=== PATIENT | male | born 1960 | race Caucasian/White ===

== ENCOUNTER 2021-09-26 14:15 | Outpatient (CLI) | payer OTHER, SELFPAY ==
[2021-09-26 14:28] LABS: Basophils Absolute Auto 0.1 K/mm3 (0.0-0.1); Basophils Percent Auto 0.6 % (0.2-1.2); Eosinophils Absolute Auto 0.4 K/mm3 (0-0.3); Eosinophils Percent Auto 3.2 % (0-4.4); Hematocrit 44.2 % (42.0-52.0); Hemoglobin 14.2 g/dL (14.0-18.0); Immature Granulocyte Absolute 0.25 K/mm3 (0.00-0.031); Immature Granulocyte Percent A 2.1 % (0-0.5); Lymphocytes Absolute Auto 1.85 K/mm3 (0.9-3.2); Lymphocytes Percent Auto 15.3 % (18.3-44.2); Mean Corpuscular HGB Conc 32.1 g/dl (32-36); Mean Corpuscular Hemoglobin 29.9 pg (26-34); Mean Corpuscular Volume 93.1 fl (80-100); Mean Platelet Volume 10.6 fl (7.4-10.4); Monocytes Absolute Auto 1.2 K/mm3 (0.1-0.6); Monocytes Percent Auto 9.7 % (2.6-8.5); Neutrophils Absolute Auto 8.4 K/mm3 (1.3-6.7); Neutrophils Percent Auto 69.1 % (45.5-73.1); Platelet Count Result 253 k/mm3 (150-375); Red Blood Count 4.75 M/mm3 (4.6-6.20); Red Cell Distribution Width 13.4 % (11.5-14.5); White Blood Count 12.1 K/mm3 (4.5-10.0)
[2021-09-26 14:31] LABS: Blood Urea Nitrogen 31 mg/dL (8-26); Carbon Dioxide 26 mmol/L (22-30); Chloride 105 mmol/L (98-109); Estimated Glomerular Filt Rate 56; Glucose 113 mg/dL (70-105); Potassium 3.4 mmol/L (3.5-4.9); Sodium 142 mmol/L (138-146)
[2021-09-26 15:38] LABS: Alanine Aminotransferase 26 U/L (4-50); Alkaline Phosphatase 48 U/L (38-126); Anion Gap 9 mmol/L (8-16); Aspartate Amino Transferase 22 U/L (17-59); Bilirubin,Total 0.5 mg/dL (0.2-1.3); Blood Urea Nitrogen 31 mg/dL (9-20); Calcium 8.8 mg/dL (8.4-10.2); Carbon Dioxide 23 mmol/L (22-30); Chloride 107 mmol/L (98-107); Estimated Glomerular Filt Rate > 60; Glucose 115 mg/dL (65-110); Potassium 3.4 mmol/L (3.4-5.0); Sodium 139 mmol/L (137-145)
== END 2021-09-26 14:16 | disposition home or self-care (01) ==
LOC: ANHLAB 14:17
PROVIDERS: Visit Provider Internal Medicine Hematology & Oncology
DX: D49.6 Neoplasm of unspecified behavior of brain (principal)
CPT/HCPCS: 36415; 80053; 85025

== ENCOUNTER 2021-10-17 13:38 | Outpatient (CLI) | payer OTHER, SELFPAY ==
[2021-10-17 13:50] LABS: Basophils Percent Auto 0.9 % (0.2-1.2); Eosinophils Absolute Auto 0.2 K/mm3 (0-0.3); Hematocrit 44.4 % (42.0-52.0); Hemoglobin 13.8 g/dL (14.0-18.0); Immature Granulocyte Absolute 0.02 K/mm3 (0.00-0.031); Immature Granulocyte Percent A 0.5 % (0-0.5); Lymphocytes Absolute Auto 1.27 K/mm3 (0.9-3.2); Lymphocytes Percent Auto 28.7 % (18.3-44.2); Mean Corpuscular HGB Conc 31.1 g/dl (32-36); Mean Corpuscular Hemoglobin 29.7 pg (26-34); Mean Corpuscular Volume 95.5 fl (80-100); Mean Platelet Volume 10.7 fl (7.4-10.4); Monocytes Absolute Auto 0.4 K/mm3 (0.1-0.6); Monocytes Percent Auto 9.7 % (2.6-8.5); Neutrophils Absolute Auto 2.4 K/mm3 (1.3-6.7); Neutrophils Percent Auto 55.2 % (45.5-73.1); Platelet Count Result 178 k/mm3 (150-375); Red Blood Count 4.65 M/mm3 (4.6-6.20); White Blood Count 4.4 K/mm3 (4.5-10.0)
[2021-10-17 13:53] LABS: Blood Urea Nitrogen 19 mg/dL (8-26); Carbon Dioxide 26 mmol/L (22-30); Chloride 107 mmol/L (98-109); Estimated Glomerular Filt Rate > 60; Glucose 133 mg/dL (70-105); Ionized Calcium (POC) 1.27 mmol/L (1.11-1.31); Potassium 3.6 mmol/L (3.5-4.9); Sodium 146 mmol/L (138-146)
[2021-10-17 15:07] LABS: Alanine Aminotransferase 44 U/L (4-50); Albumin Level 4.4 g/dL (3.5-5.1); Alkaline Phosphatase 51 U/L (38-126); Anion Gap 7 mmol/L (8-16); Aspartate Amino Transferase 34 U/L (17-59); Bilirubin,Total 0.3 mg/dL (0.2-1.3); Blood Urea Nitrogen 19 mg/dL (9-20); Calcium 9.1 mg/dL (8.4-10.2); Carbon Dioxide 27 mmol/L (22-30); Chloride 109 mmol/L (98-107); Estimated Glomerular Filt Rate > 60; Glucose 137 mg/dL (65-110); Potassium 3.5 mmol/L (3.4-5.0); Sodium 143 mmol/L (137-145)
== END 2021-10-17 13:39 | disposition home or self-care (01) ==
LOC: ANHLAB 13:40
PROVIDERS: Visit Provider Internal Medicine Hematology & Oncology
DX: D49.6 Neoplasm of unspecified behavior of brain (principal)
CPT/HCPCS: 36415; 80047; 80053; 85025

== ENCOUNTER 2021-11-11 11:18 | Outpatient (CLI) | payer OTHER, SELFPAY ==
[2021-11-11 11:40] LABS: Basophils Absolute Auto 0.1 K/mm3 (0.0-0.1); Eosinophils Absolute Auto 0.1 K/mm3 (0-0.3); Eosinophils Percent Auto 2.2 % (0-4.4); Hematocrit 42.2 % (42.0-52.0); Hemoglobin 13.8 g/dL (14.0-18.0); Immature Granulocyte Absolute 0.02 K/mm3 (0.00-0.031); Immature Granulocyte Percent A 0.4 % (0-0.5); Lymphocytes Absolute Auto 0.83 K/mm3 (0.9-3.2); Lymphocytes Percent Auto 16.6 % (18.3-44.2); Mean Corpuscular HGB Conc 32.7 g/dl (32-36); Mean Corpuscular Hemoglobin 29.4 pg (26-34); Mean Corpuscular Volume 89.8 fl (80-100); Monocytes Absolute Auto 0.6 K/mm3 (0.1-0.6); Neutrophils Absolute Auto 3.4 K/mm3 (1.3-6.7); Neutrophils Percent Auto 67.8 % (45.5-73.1); Platelet Count Result 154 k/mm3 (150-375); Red Cell Distribution Width 13.4 % (11.5-14.5)
[2021-11-11 11:45] LABS: Blood Urea Nitrogen 14 mg/dL (8-26); Carbon Dioxide 29 mmol/L (22-30); Chloride 105 mmol/L (98-109); Estimated Glomerular Filt Rate > 60; Glucose 95 mg/dL (70-105); Potassium 3.9 mmol/L (3.5-4.9); Sodium 143 mmol/L (138-146)
== END 2021-11-11 11:19 | disposition home or self-care (01) ==
LOC: ANHLAB 11:19
PROVIDERS: Visit Provider Internal Medicine Hematology & Oncology
DX: D49.6 Neoplasm of unspecified behavior of brain (principal)
CPT/HCPCS: 36415; 80047; 85025

== ENCOUNTER 2021-11-22 12:11 | Outpatient (CLI) | payer OTHER, SELFPAY ==
--- NOTE | ~2021-11-22 | MR_ITS ---
EXAMINATION: MR brain/brain stem wo/w con DATE: 11/22/2021 12:54 INDICATION: Malignant neoplasm of frontal lobe. TECHNIQUE: Magnetic resonance imaging (MRI) of the brain and brainstem was performed without and with 18 mL MultiHance intravenous contrast. COMPARISON: Head CT 07/16/2011 FINDINGS: There is an enhancing mass centered in right frontal lobe with extension across the midline into left frontal lobe. The enhancing portion of the mass measures 6.1 x 5.0 cm. There is increased T2-weighted signal intensity involving the white matter of the frontal lobes and anterior right insul a, likely a combination of vasogenic edema and treatment change. There are changes of right-sided cradle slide maker niectomy. There is heterogeneous signal intensity and enhancement in the right temporal fossa and fro ntal sinuses. There is no acute ischemic infarct. There are old blood products in the area of the cradle slide maker niectomy. There are scattered areas of nonspecific increased T2-weighted signal intensity in the post erior cerebral white matter, likely mild chronic small vessel ischemic disease. The ventricles are no rmal in size. The orbits are normal. There is mild mucosal thickening in the paranasal sinuses. The m astoid air cells are normal. IMPRESSION: 1. Mass involving the frontal lobes, right worse than left, consistent with gliosarcoma. 2. Abnormal signal and enhancement involving the frontal sinuses and right temporal fossa. Given the history of postsurgical infection, these findings may be surgical change, infection, and/or direct ex tension of malignancy. Reviewed, dictated and finalized at location A. IMPRESSION: 1. Mass involving the frontal lobes, right worse than left, consistent with gli osarcoma. 2. Abnormal signal and enhancement involving the frontal sinuses and right temp oral fossa. Given the history of postsurgical infection, these findings may be surgical change, infection, and/or direct extension of malignancy.
== END 2021-11-22 12:12 | disposition home or self-care (01) ==
LOC: ANHIMG 12:16
PROVIDERS: Visit Provider Radiology Radiation Oncology
DX: C71.1 Malignant neoplasm of frontal lobe (principal)
CPT/HCPCS: 70553; A9577

== ENCOUNTER → 2021-11-28 14:04 | Outpatient (REF) | payer OTHER, SELFPAY | LOC: ANHLAB 14:04 | PROVIDERS: Visit Provider Nurse Practitioner | DX: D49.2 Neoplasm of unspecified behavior of bone, soft tissue, and skin (principal) | CPT/HCPCS: 88305 ==

== ENCOUNTER 2021-12-07 10:03 | Outpatient (CLI) | payer OTHER, SELFPAY ==
[2021-12-07 10:18] LABS: Basophils Percent Auto 0.4 % (0.2-1.2); Eosinophils Absolute Auto 0.1 K/mm3 (0-0.3); Eosinophils Percent Auto 1.1 % (0-4.4); Hematocrit 40.2 % (42.0-52.0); Hemoglobin 12.9 g/dL (14.0-18.0); Immature Granulocyte Absolute 0.03 K/mm3 (0.00-0.031); Immature Granulocyte Percent A 0.4 % (0-0.5); Lymphocytes Absolute Auto 1.06 K/mm3 (0.9-3.2); Lymphocytes Percent Auto 13.9 % (18.3-44.2); Mean Corpuscular HGB Conc 32.1 g/dl (32-36); Mean Corpuscular Hemoglobin 29.4 pg (26-34); Mean Corpuscular Volume 91.6 fl (80-100); Mean Platelet Volume 10.1 fl (7.4-10.4); Monocytes Absolute Auto 0.6 K/mm3 (0.1-0.6); Neutrophils Absolute Auto 5.8 K/mm3 (1.3-6.7); Neutrophils Percent Auto 76.2 % (45.5-73.1); Platelet Count Result 161 k/mm3 (150-375); Red Blood Count 4.39 M/mm3 (4.6-6.20); White Blood Count 7.6 K/mm3 (4.5-10.0)
[2021-12-07 10:22] LABS: Blood Urea Nitrogen 19 mg/dL (8-26); Carbon Dioxide 22 mmol/L (22-30); Chloride 107 mmol/L (98-109); Estimated Glomerular Filt Rate > 60; Glucose 133 mg/dL (70-105); Ionized Calcium (POC) 1.24 mmol/L (1.11-1.31); Potassium 3.4 mmol/L (3.5-4.9); Sodium 143 mmol/L (138-146)
== END 2021-12-07 10:04 | disposition home or self-care (01) ==
LOC: ANHLAB 10:06
PROVIDERS: Visit Provider Internal Medicine Hematology & Oncology
DX: D49.6 Neoplasm of unspecified behavior of brain (principal)
CPT/HCPCS: 36415; 80047; 85025

== ENCOUNTER → 2021-12-13 15:25 | Outpatient (REF) | payer OTHER, SELFPAY | LOC: ANHLAB 15:25 | PROVIDERS: Visit Provider Nurse Practitioner | DX: C44.629 Squamous cell carcinoma of skin of left upper limb, including shoulder (principal) | CPT/HCPCS: 88305 ==

== ENCOUNTER 2022-02-06 13:20 | Outpatient (CLI) | payer OTHER, SELFPAY ==
--- NOTE | ~2022-02-06 | MR_ITS ---
EXAMINATION: MR brain/brain stem wo/w con DATE: 02/06/2022 14:54 INDICATION: Malignant neoplasm of frontal lobe. TECHNIQUE: Magnetic resonance imaging (MRI) of the brain and brainstem was performed without and with 18 mL MultiHance intravenous contrast. COMPARISON: Brain MRI 10/3121, head CT 07/16/2011 FINDINGS: There is an enhancing mass centered in right frontal lobe with extension across the midline into left frontal lobe. The enhancing portion of the mass measures 5.9 x 5.8 cm and previously measu red 6.2 x 5.4 cm. There is increased T2-weighted signal intensity involving the white matter of the f rontal lobes, right insula, and right temporal lobe and the right basal ganglia. There are changes of right-sided craniectomy. There is heterogeneous signal intensity and enhancement in the right tempor al fossa with interval improvement. There is mild mucosal thickening in the paranasal sinuses. There is no acute ischemic infarct. There are old blood products in the area of the craniectomy. There are scattered areas of nonspecific increased T2-weighted signal intensity in the posterior cerebral white matter, likely mild chronic small vessel ischemic disease. There is mass effect on the body and fron miguel angel horns the lateral ventricles. There is 8 mm leftward midline shift at the frontal lobes. The orbi ts are normal. There is mild mucosal thickening in the paranasal sinuses. The mastoid air cells are n ormal. IMPRESSION: 1. Stable mass involving the frontal lobes, right worse than left, consistent with gliosarcoma. 2. Worsened distribution of increased T2-weighted signal intensity around the mass centered in right frontal lobe, likely a combination of vasogenic edema and treatment change without or with a nonenhan cing tumor component. 3. Worsened leftward midline shift. 4. Abnormal signal and enhancement involving the right temporal fossa with interval improvement. Give n the history of postsurgical infection, these findings may be surgical change, infection, and/or dir ect extension of malignancy. Reviewed, dictated and finalized at location A. IMPRESSION: 1. Stable mass involving the frontal lobes, right worse than left, consistent w ith gliosarcoma. 2. Worsened distribution of increased T2-weighted signal intensity around the m ass centered in right frontal lobe, likely a combination of vasogenic edema and treatment change without or with a nonenhancing tumor component. 3. Worsened leftward midline shift. 4. Abnormal signal and enhancement involving the right temporal fossa with inte rval improvement. Given the history of postsurgical infection, these findings m ay be surgical change, infection, and/or direct extension of malignancy.
== END 2022-02-06 13:21 | disposition home or self-care (01) ==
PROVIDERS: Visit Provider Radiology Radiation Oncology
DX: C71.1 Malignant neoplasm of frontal lobe (principal)
CPT/HCPCS: 70553; A9577

== ENCOUNTER 2022-03-16 01:24 | Day surgery (SDC) | payer OTHER, SELFPAY ==
[2022-03-14 10:50] VITALS: BMI 26.4
--- NOTE | 2022-03-14 10:59 | SUR.PREOP ---
Report to the Outpatient Waiting Room, entrance under the green pavilion located off [facility], at time 1000 on date 03/16/22. OR Time: 1200. Time changes happen often and if your time is changed the preop area will call you the afternoon before. - You and your visitor will be asked to self-screen and do not enter if you have any COVID symptoms. - Only one visitor and NO children visitors are allowed at this time. - The patient visitor is requested to leave or wait in car when not with patient due to restrictions. - A mask is required within the hospital. Patients may have clear liquids (water, carbonated beverages, clear teas, apple juice) until 3 hours prior to surgery with a maximum of 20 ounces. - No food from midnight until time of surgery NOTHING AFTER 0900 AM - Infants may have breast milk until 4 hours before surgery, formula 6 hours prior to surgery. - Children will be allowed to drink immediately following surgery. If applicable, please bring a bottle or sippy cup to assist with drinking. Juice, water, soda, and popsicles are readily available. For infants on formula, please bring formula the day of surgery. Pacifiers are allowed. Take the following medications with a SIP of water the morning of surgery: _LEVETIRACETAM__ Medications to discontinue per physician Date to take last dose Please no make-up, nail gibraltarian, hairspray, perfume, deodorant, or body powder the day of surgery. No jewelry (including any body piercings) or valuables the day of surgery, leave them at home. Please take a shower or bath the night before, or the morning of, surgery with an antibacterial soap. Wear comfortable, loose fitting clothing. Children are encouraged to wear pajamas. - Jewelry must be removed prior to entering the operating room. Rings and piercings that are not removed may be cut off. - The hospital will not accept responsibility for valuables. - Please leave all valuables, including medications, at home the day of surgery. If you are going home after surgery, a licensed drivers license examiner must drive you home. - NO public transportation without another adult. - We recommend that an adult stay with you for 24 hours following discharge. - We also recommend that you do not drive, make important decision, drink alcoholic beverages, or take any drugs that were not prescribed by your health care provider for at least 24 hours after your discharge time. For Pediatric surgeries, we recommend two adults accompany the child home (only one inside the building at this time). Follow any additional instructions given to you from your surgeon. If you or anyone in your household have experienced Covid symptoms in the past week, please notify your surgeon or the nurse liaison at the phone number below for possible testing. Telephone instructions given to PATIENT and asked if any additional questions and then verbalized understanding. Patient advised to call surgeon office or pre surgery nurse liaison [phone] if any additional questions.
--- NOTE | 2022-03-15 13:19 | WPDANESEPPF ---
Anes - Initial Pre Proc Eval Procedure: Operation Date: 03/16/22 12:00 Proposed Procedures p Insertion Alex Cath - Santi Warner MD Date/Time: 03/15/22 13:19 Surgeon: Santi Warner MD Pre Op Diagnosis: giliosarcoma Patient Data Age: 61 Gender: M Height: 1.83 m Weight: 88.46 kg Allergies Allergy/AdvReac Type Severity Reaction Status Date / Time Contrast Media Allergy Unknown Unknown Uncoded 03/16/22 11:34 Home Medications Medication Instructions Recorded Confirmed Type levetiracetam 500 mg tablet 500 mg PO BID 07/25/21 03/16/22 History ondansetron HCl 8 mg tablet 8 mg PO DAILY PRN Nausea 03/14/22 03/14/22 History Patient hx anesthesia problems: none Family hx anesthesia problems: none Results Review: All pre-operative results and documents have been reviewed as part of the pre-operative evaluation. [facility] Past Medical History Medical History (Updated 03/15/22 @ 13:25 by John Mcnally MD) Glioblastoma History of colon cancer Overweight (BMI 25.0-29.9) Seizure Surgical History Surgical History History of cholecystectomy Family History Family History Father Carcinoma of colon Lung cancer Social History Social History Smoking status: Never smoker Living arrangements: with family Spiritual care concerns: No Anes - Eval Final PreProcedure Day of Procedure 03/15/22 13:19 Patient weight: overweight Heart: regular rate and rhythm Lungs: clear to auscultation and normal air movement Airway: Mallampati scale class II Neurological: alert and oriented Last oral intake: >/= 8 hours ASA classification: IV Emergent: no Anesthetic plan: proceed Anesthesia type and monitoring: general GIVS Results Review: All pre-operative results and documents have been reviewed as part of the pre-operative evaluation. Informed Consent: The patient's anesthetic plan and its attendant risks and benefits were discussed with the patient/family/POA. Questions were solicited and answers provided to the satisfaction of the patient/family/POA.
--- NOTE | ~2022-03-16 | XR_ITS ---
XR fl guide central line place 03/16/2022 13:26 Indication: Portacatheter placement Procedure: Single fluoroscopic view of the chest. 113 seconds of fluoroscopy. Comparison: No prior studies for comparison. Findings: Portacatheter tip in the SVC near the cavoatrial junction. Impression: 1: Portacatheter tip in the caudal aspect of the SVC. Reviewed, dictated and finalized at location A. Impression: 1: Portacatheter tip in the caudal aspect of the SVC.
--- NOTE | ~2022-03-16 | XR_ITS ---
EXAMINATION: XR chest port-a-cath/central DATE: 03/16/2022 13:57 INDICATION: Port placement. TECHNIQUE: A single frontal view of the chest was obtained. COMPARISON: None. FINDINGS: There is no pneumonia, pleural effusion, or pneumothorax. The heart size is normal. There i s a left subclavian port with tip in proximal right atrium. There is compression of the catheter betw een the clavicle and first rib. IMPRESSION: 1. Port tip in proximal right atrium. Compression of the catheter between the clavicle and first rib increases the risk of catheter fracture. Reviewed, dictated and finalized at location A. IMPRESSION: 1. Port tip in proximal right atrium. Compression of the catheter between the c lavicle and first rib increases the risk of catheter fracture.
[2022-03-16 10:30] VITALS: BP 141/76; PULSE 61; RESP 16; TEMP 36.6; O2SAT 95
[2022-03-16] MEDS: LACTATED RINGERS 1,000 ML 30 ML IV CONT (10:30)
[2022-03-16 11:24] LABS: Prothrombin Time 12.9 Seconds (11.1-14.7)
[2022-03-16] MEDS: KETOROLAC 15 MG/ML VIAL (*BKC) IV PUSH (11:30)
[2022-03-16] MEDS: SCOPOLAMINE 1.5 MG PATCH TRANSDERM (11:55)
--- NOTE | 2022-03-16 12:29 | WPDHPUPDATE1 ---
History and Physical Update Update Date/Time: 03/16/22 12:29 History and Physical has been reviewed, including an updated exam of the patient. There are NO changes in the patient's condition. Risks, benefits, and alternatives have been discussed and questions answered. Patient agrees to proceed with procedure.
--- NOTE | 2022-03-16 12:30 | PM.SD2 ---
Same Day Admit/Disch: HPI History of Present Illness Chief complaint: giliosarcoma Narrative: Uriel Ortiz is a 61 year old male who needs a portacath for chemotherapy for gliosarcoma. [facility] Past Medical History Medical History (Updated 03/16/22 @ 14:08 by Santi Warner MD) Glioblastoma History of colon cancer Overweight (BMI 25.0-29.9) Seizure Surgical History Surgical History History of cholecystectomy Family History Family History Father Carcinoma of colon Lung cancer Social History Social History Smoking status: Never smoker Living arrangements: with family Spiritual care concerns: No Same Day Admit/Disch: Med Pre-admit Medications Home Medications Medication Instructions Recorded Confirmed Type levetiracetam 500 mg tablet 500 mg PO BID 07/25/21 03/16/22 History ondansetron HCl 8 mg tablet 8 mg PO DAILY PRN Nausea 03/14/22 03/14/22 History ibuprofen 600 mg tablet 600 mg PO Q6H PRN pain #14 tabs 03/16/22 Rx oxycodone-acetaminophen 5 mg-325 1 - 2 tablet PO Q6H PRN pain #15 03/16/22 Rx mg tablet (Percocet) tabs Exam Const: General: comfortable, no acute distress, alert and awake HENMT: Head: normocephalic and atraumatic Mouth: Yes Normal oral and palatal mucosa present Eyes: Conjunctivae: conjunctivae normal Pupils: Equal, round and reactive pupils present EOM: EOMs intact bilaterally Neck: Neck: normal visual inspection, no lymphadenopathy and nontender Resp: Effort & Inspection: normal respiratory effort Auscultation: clear to auscultation bilaterally Cardio: Rate: regular rate Rhythm: regular rhythm Heart sounds: no gallops, no murmurs and no rubs GI: Inspection: non-distended GI Palp: Yes Soft to palpation, No Tenderness to palpation present (GI), No Hepatomegaly present and No Splenomegaly present Skin: Lesions: no lesions Rashes: no rashes Neuro: General: no focal motor deficits and CN's II-XI intact bilaterally Cranial nerves: Yes Equal, round and reactive pupils present, Yes Bilaterally intact EOM present, Yes facial symmetry and Yes Midline tongue present Speech: normal speech Motor exam (neuro): 5/5 motor strength present throughout and Motor abnormalities not present Extrem: General: no clubbing, cyanosis or edema and edema Psych: Affect: normal affect Thought process: Normal thought process present Insight: Good insight present (Psych) DS: Data Data Completed and Pending Labs on day of discharge: Labs from last 24 hours 03/16/22 11:07 PT 12.9 INR 1.0 APTT 29.0 DS: Summary Time Spent with Patient Time attestation: Total time spent providing and/or coordinating discharge services: DS: Admitting Diagnosis Discharge Date 03/16/22 Admitting Diagnosis glioblastoma inadequate venous access for chemotherapy--plan to place portacath under fluoroscopy. Procedure, risks, benefits discussed. He agrees to go ahead. DS: Discharge Diagnosis Discharge Diagnosis (1) Gliosarcoma of brain: Code(s): C71.9 - Malignant neoplasm of brain, unspecified Status: Acute (2) Admission for fitting of Port-A-Cath: Code(s): Z45.2 - Encounter for adjustment and management of vascular access device Status: Acute Assessment and Plan: LEFT SUBCLAVIAN VORTEX PORT-A-CATH PLACED UNDER FLUOROSCOPY Discharge Plan Discharge Patient Disposition: Home, Self-Care Discharge Instructions: Medications: Patient to resume all previous home medication Prescriptions to be given to patient at discharge Treatments: May bathe or shower tomorrow. May return to work or driving in 24 hours unless taking narcotic pain medications Follow-up with medical oncolog
[2022-03-16] MEDS: ceFAZolin 2 GM/D5W 50 ML 2 GM/50 ML BAG IVPB (12:36)
[2022-03-16] MEDS: HEPARIN SODIUM 5,000 UNITS/ML VIAL 1000 UNITS IRRIGATION (13:23)
[2022-03-16] MEDS: BUPIVACAINE/EPINEPHRINE 0.25% 50 ML VIAL 20 ML INFILTRATE (13:24)
[2022-03-16 13:39] VITALS: BP 113/66; PULSE 57; RESP 12; O2SAT 93
--- NOTE | 2022-03-16 13:51 | SUR.PHASEII ---
PORTABLE CXR IN PROGRESS.
--- NOTE | 2022-03-16 13:57 | W.PM.PROC2 ---
Procedure Note - Detailed Date of Procedure 03/16/22 Pre-op Diagnosis giliosarcoma, inadequate venous access for chemotherapy Post-op Diagnosis Same Procedure Performed Placement left subclavian vortex Port-A-Cath under fluoroscopy Surgeon Santi Warner MD Coupon Collection Clerk PEDRO Acevedo Anesthesia MAC and Local (0.25% Marcaine with epinephrine) Indications Patient had craniotomy for gliosarcoma. He is to receive chemotherapy and a Port-A-Cath was requested for this purpose. Findings None significant. Description of Procedure Patient was taken to surgery and IV sedation was administered. The left neck and left subclavian area were prepped and draped. The proposed incision was marked under the left clavicle. Local anesthesia was infiltrated in the area of the anticipated incision and in the deeper subcutaneous tissues. Incision was made dissection was carried down through the subcutaneous. We continue the dissection through the pectoralis major fascia. A sub fascial pocket was then created. Cautery was used for hemostasis. Additional local was infiltrated under the left clavicle. The left subclavian vein was then cannulated. A guidewire was passed but was somewhat difficult to be passed. I had to use C-arm fluoroscopy to eventually pass the guidewire into the superior vena cava. I then used C-arm fluoroscopy and placed the Port-A-Cath in the pocket. I laid the tubing over the path of the guidewire and measured the length of Port-A-Cath tubing that would be needed. I cut the tubing to the appropriate size. I then passed the introducer and sheath over the guidewire and into the superior vena cava by fluoroscopy. The guidewire and introducer were removed. I passed the Port-A-Cath tubing through the sheath and into the superior vena cava. The sheath was removed. I reviewed the Port-A-Cath under fluoroscopy and the tubing appeared to be in the distal superior vena cava or right atrial junction. I then checked the Port-A-Cath. It aspirated blood and flushed easily with heparin. The Port-A-Cath was then sutured to the pectoralis major muscle with 3-0 silk suture. I again checked the Port-A-Cath. It also aspirated blood easily and flushed with heparin. The wound was closed with layered closure of running 0 Vicryl suture. The skin was then closed with running 4-0 Monocryl skin suture. Wound was dressed with Exofin surgical adhesive. Patient was awakened and taken to outpatient surgery in good condition. Sponge and needle counts were correct x2. Implants Vortex Port-A-Cath left subclavian position Estimated Blood Loss -5.0 Drains No Packing No Pathology None sent Complications No immediate complications Condition Stable Disposition Same day [facility] Billing Surgery - Charge Forward: Surgery Billing (Placement Port-A-Cath under fluoroscopy)
[2022-03-16 14:05] VITALS: BP 141/68; PULSE 59; RESP 12; O2SAT 96
[2022-03-16 14:35] VITALS: BP 121/75; PULSE 48; RESP 12
--- NOTE | 2022-03-16 14:37 | SUR.PHASEII ---
CXR SHOWS NO PNEUMOTHORAX.
--- NOTE | 2022-03-16 15:06 | SUR.PHASEII ---
1400 PATIENT'S ASKED THAT SCRIPTS BE CHANGED TO DIFFERENT PHARMACY. CALLED PLACED TO DR. FINCH'S OFFICE; MESSAGE TAKEN BY STAFF TO RELAY TO DR. FINCH.
--- NOTE | 2022-03-16 15:49 | SUR.PHASEII ---
DR. FINCH CALLED BACK; HE WILL TRY TO HAVE SCRIPTS CHANGED TO [facility] IN [place] PER PATIENT'S REQUEST. PATIENT'S CALLED TO RELAY MESSAGE.
== END 2022-03-16 15:06 | disposition home or self-care (01) ==
PROVIDERS: Visit Provider Surgery
PROC: (CPT 36561; principal; 2022-03-16 12:00)
DX: C71.9 Malignant neoplasm of brain, unspecified (principal); G40.909 Epilepsy, unspecified, not intractable, without status epilepticus; Z85.038 Personal history of other malignant neoplasm of large intestine
CPT/HCPCS: 36561; 36415; 77001; 85610; 85730; A9270; C1788; J0690; J1644; J1885; J2250; J2704; J3010; J7030; J7120

== ENCOUNTER 2022-12-27 12:17 | Emergency (ER) | payer OTHER, SELFPAY ==
[2022-12-27] VITALS (41 sets, daily range): BP systolic 94–120; BP diastolic 69–88; PULSE 56–71; RESP 12–21; O2SAT 91–100
--- NOTE | ~2022-12-27 | XR_ITS ---
Clinical Indication: Weakness AP and lateral views of the chest: Comparison: 03/16/2022 Findings: Left-sided Mediport is unchanged. The lungs are clear, without evidence of focal consolidat ion or pleural effusion. Cardiomediastinal silhouette is within normal limits. Bones and soft tissue s are unremarkable. Impression: Clear lungs. Stable Mediport. Reviewed, dictated and finalized at location M. Impression: Clear lungs. Stable Mediport.
--- NOTE | ~2022-12-27 | CT_ITS ---
EXAMINATION: CT brain wo con DATE: 12/27/2022 13:49 INDICATION: Leg weakness. Glioblastoma multiforme TECHNIQUE: Computed tomography (CT) of the head was performed without intravenous contrast. Sagittal and coronal reconstructions were performed. The mA was adjusted according to patient size. Iterative reconstruction technique was employed. The dose-length product was 681.00 mGy-cm. COMPARISON: head CT dated 07/16/2011 and brain MR dated 02/06/2022 FINDINGS: Right frontal craniectomy. There is encephalomalacia in the underlying anterior right frontal lobe. W hereas previously there was mass effect from the right frontal lobe resulting in [id number] midlin e shift, there is now mass effect centered in the medial aspect of the anterior left frontal lobe res ulting in 2 cm left to right midline shift and distortion of the anterior horns of both the left and right lateral ventricles. Prominent decreased white matter attenuation in the bilateral frontal lobes likely combination of vasogenic edema and posttreatment changes. No acute intracranial hemorrhage, a cute infarction or abnormal extra axial fluid collection. Mild mucosal thickening in the left frontal and right sphenoid sinuses. The orbits and mastoid air cells are normal. IMPRESSION: 1. Resolution of prior mass effect arising the right frontal lobe consistent with likely response to treatment of reported glioblastoma multiforme. 2. Interval development of new significant mass effect centered in the anterior left frontal lobe con sistent with progression of disease and resulting 2 cm anterior subfalcine left to right midline shif t. Reviewed, dictated and finalized at location B. IMPRESSION: 1. Resolution of prior mass effect arising the right frontal lobe consistent wi th likely response to treatment of reported glioblastoma multiforme. 2. Interval development of new significant mass effect centered in the anterior left frontal lobe consistent with progression of disease and resulting 2 cm an terior subfalcine left to right midline shift.
--- NOTE | 2022-12-27 12:27 | ECG_ITS ---
Measurements Intervals [place] Rate: 69 P: 75 WV: 140 QRS: -13 QRSD: 97 T: -31 QT: 414 QTc: 446 Interpretive Statements SINUS RHYTHM DELAYED PRECORDIAL R/S TRANSITION T WAVE ABNORMALITY IN ANT/INF LEADS- CONSIDER ISCHEMIA BASELINE ARTIFACT- I, AVL ABNORMAL ECG NO PREVIOUS ECG AVAILABLE FOR COMPARISON Electronically Signed On 01-01-2023 11:30:21 CDT by Parrish Wade D.O.
--- NOTE | 2022-12-27 12:56 | PC.NURSE ---
pt seen thru [facility] for brain tumor. last CT done at [place]. pt under care of Dr Anup Alvarado.
[2022-12-27 14:23] LABS: Basophils Percent Auto 0.2 % (0.2-1.2); Hematocrit 48.8 % (42.0-52.0); Hemoglobin 16.3 g/dL (14.0-18.0); Immature Granulocyte Absolute 0.03 K/mm3 (0.00-0.031); Immature Granulocyte Percent A 0.5 % (0-0.5); Lymphocytes Absolute Auto 0.93 K/mm3 (0.9-3.2); Lymphocytes Percent Auto 14.1 % (18.3-44.2); Mean Corpuscular HGB Conc 33.4 g/dl (32-36); Mean Corpuscular Hemoglobin 29.4 pg (26-34); Mean Corpuscular Volume 87.9 fl (80-100); Mean Platelet Volume 10.6 fl (7.4-10.4); Monocytes Absolute Auto 1.1 K/mm3 (0.1-0.6); Monocytes Percent Auto 16.1 % (2.6-8.5); Neutrophils Absolute Auto 4.6 K/mm3 (1.3-6.7); Neutrophils Percent Auto 69.1 % (45.5-73.1); Platelet Count Result 67 k/mm3 (150-375); Red Blood Count 5.55 M/mm3 (4.6-6.20); White Blood Count 6.6 K/mm3 (4.5-10.0)
[2022-12-27 14:28] LABS: Alanine Aminotransferase 76 U/L (6-50); Albumin Level 4.4 g/dL (3.5-5.1); Alkaline Phosphatase 43 U/L (38-126); Anion Gap 12 mmol/L (8-16); Aspartate Amino Transferase 44 U/L (17-59); Bilirubin,Total 2.1 mg/dL (0.2-1.3); Blood Urea Nitrogen 26 mg/dL (9-20); Calcium 10.1 mg/dL (8.4-10.2); Carbon Dioxide 26 mmol/L (22-30); Chloride 107 mmol/L (98-107); Estimated CRCL calculation 65 ml/min; Estimated Glomerular Filt Rate > 60; Glucose 103 mg/dL (65-110); Potassium 3.9 mmol/L (3.4-5.0); Sodium 145 mmol/L (137-145)
[2022-12-27 14:30] LABS: INR 0.9; Prothrombin Time 12.2 Seconds (11.1-14.7)
[2022-12-27 14:31] LABS: Partial Thromboplastin Time 27.6 SECONDS (22.3-36.8)
--- NOTE | 2022-12-27 15:04 | ED.NEUROSD ---
HPI - Neuro Symptoms/Deficit General Chief Complaint: Neuro Symptoms/Deficit <Adelfo Hernandez MD - Last Filed: 12/27/22 20:39> Stated Complaint: neuro symptoms <Adelfo Hernandez MD - Last Filed: 12/27/22 20:39> Time Seen by Provider: 12/27/22 13:20 <Adelfo Hernandez MD - Last Filed: 12/27/22 20:39> History of Present Illness HPI Narrative: Patient is a 62-year-old male with history of glioblastoma who receives care from Dr. Alvarado at [facility]. Patient has had frontal lobe resection but then developed recurrence that is inoperable. Last night patient was using the restroom and then was too weak to stand up off of the toilet. Patient's and daughter had to carry him to bed. He has been unable to get up and walk around today as well. Patient is unable to provide history due to previous surgery and tumors. He does follow commands without issue. History obtained from . No recent infectious symptoms. There is been no conversations about hospice though he has a terminal illness. <Adelfo Hernandez MD - Last Filed: 12/27/22 20:39> Related Data Home Medications: Home Medications Medication Instructions Recorded Confirmed levetiracetam 500 mg tablet 500 mg PO BID 07/25/21 03/16/22 ondansetron HCl 8 mg tablet 8 mg PO DAILY PRN Nausea 03/14/22 03/14/22 <Adelfo Hernandez MD - Last Filed: 12/27/22 20:39> Allergies/Adverse Reactions: Allergies Allergy/AdvReac Type Severity Reaction Status Date / Time Contrast Media Allergy Unknown Unknown Uncoded 03/16/22 11:34 <Adelfo Hernandez MD - Last Filed: 12/27/22 20:39> Review of Systems Review of Systems: ROS unobtainable: Yes unobtainable due to medical condition <Adelfo Hernandez MD - Last Filed: 12/27/22 20:39> PMFSH Past Medical History Medical History: Medical History (Updated 12/29/22 @ 00:00 by Background Daemon) Glioblastoma History of colon cancer Overweight (BMI 25.0-29.9) Seizure <Adelfo Hernandez MD - Last Filed: 12/27/22 20:39> Surgical History Surgical History: Surgical History History of cholecystectomy <Adelfo Hernandez MD - Last Filed: 12/27/22 20:39> Family History Family History: Family History Father Carcinoma of colon Lung cancer <Adelfo Hernandez MD - Last Filed: 12/27/22 20:39> Social History Social History: Social History Smoking status: Never smoker Living arrangements: with family Spiritual care concerns: No <Adelfo Hernandez MD - Last Filed: 12/27/22 20:39> Exam Narrative: GENERAL: Well-appearing, well-nourished, and in no acute distress. HEAD: Normocephalic, surgical defect right forehead. EYES: PERRL and EOMI. ENT: Mucous membranes moist. CHEST: Clear to auscultation. No respiratory distress. HEART: Regular rate and rhythm. Normal peripheral pulses. ABDOMEN: Soft, nontender, nondistended. EXTREMITIES: Normal range of motion. No edema. Normal strength at the hip/knee/ankle bilateral lower extremities despite having some slight drift and being unable to ambulate. SKIN: Warm, dry, no rash. NEURO: Slight drift in bilateral lower extremities, no upper extremity drift, no facial droop. Alert and oriented x1. PSYCH: Normal mood and affect. <Adelfo Hernandez MD - Last Filed: 12/27/22 20:39> Course Course Emergency Course: 1600: I discussed the case with the on-call neuro oncologist Dr. Mera. Recommends IV Decadron 10 mg as well as scheduled Keppra. He would then like patient to have Decadron 4 mg every 6 hours. Patient is on a wait list to go to [facility]. Patient and informed of imaging results and lab results and the treatment plan. is verbalized understanding. Discussed the dire nature of patient's illness. <Adelfo Hernandez MD - [facility]
[2022-12-27] MEDS: SODIUM CHLORIDE 0.9% IV 1,000 ML 999 ML IV CONT (16:42)
[2022-12-27] MEDS: levETIRAcetam 500MG/NACL 100ML 500 MG/100 ML BAG 400 MG IVPB (16:42)
[2022-12-27 16:44] LABS: Appearance Urine Clear (Clear); Bacteria Urine None Seen /hpf; Bilirubin Urine 2+ (Negative); Blood Urine Negative (Negative); Color Urine Dark Yellow (Yellow); Glucose Urine UA Negative (Negative); Hyaline Casts Urine Present /lpf; Ketones Urine 2+ mg/dL (Negative); Leukocyte Esterase Ur Trace LEU/UL (Negative); Nitrate Urine Positive (Negative); Non Pathogenic Casts 0-2; Protein Urine Trace mg/dL (Negative); RBC Urine 0-2 /hpf (0-2); Specific Grav Ur 1.023 (1.001-1.035); Squamous Epithelial Cell Urine None seen /hpf (Few); WBC Urine 0-5 /hpf; pH Urine 5.5 (5.0-9.0)
[2022-12-27 16:47] LABS: Add Urine Microscopic? YES
--- NOTE | 2022-12-27 17:01 | PC.NURSE ---
Patient given water per verbal order from physician
--- NOTE | 2022-12-27 20:12 | PC.NURSE ---
spoke with Francoise with [facility] for report. awaiting bed placement.
--- NOTE | 2022-12-27 23:10 | PC.NURSE ---
This RN assumed care of patient.
[2022-12-28] VITALS (16 sets, daily range): BP systolic 75–128; BP diastolic 39–81; PULSE 48–62; RESP 1–32; TEMP 35.9; O2SAT 95–100
[2022-12-28] MEDS: DEXAMETHASONE SOD PHOS INJ 4 MG/ML VIAL IV PUSH ×4 (01:10→17:24)
--- NOTE | 2022-12-28 03:00 | PC.NURSE ---
0258 bed status check with [facility] - [facility] remains on bed wait list
[2022-12-28] MEDS: levETIRAcetam 500MG/NACL 100ML 500 MG/100 ML BAG 400 MG IVPB ×2 (07:25→17:25)
--- NOTE | 2022-12-28 07:27 | PC.NURSE ---
assumed care of pt. pt laying on stretcher, no complaints at this time. updated on currently waiting for bed at [facility]. no additional questions
--- NOTE | 2022-12-28 08:57 | PC.NURSE ---
called dietary to order breakfast per pt request
--- NOTE | 2022-12-28 14:37 | PC.NURSE ---
spoke with mihai at [facility] for vs and lab update. states pt is still on list for transfer, but no beds are available at this time. unknown approximate wait time. family updated.
[2022-12-28] MEDS: HYDROcodone/acetaminophen (*CRX) 5-325 MG TABLET 1 TAB PO (19:05)
[2022-12-28] MEDS: HEPARIN SODIUM LOCK FLUSH 500 UNITS/5 ML SYRINGE IV PUSH (20:29)
== END 2022-12-28 20:43 | disposition hospice, home (50) ==
PROVIDERS: Emergency Provider Emergency Medicine
DX: G93.89 Other specified disorders of brain (principal); E66.3 Overweight; Z68.21 Body mass index [BMI] 21.0-21.9, adult; Z85.038 Personal history of other malignant neoplasm of large intestine; Z90.49 Acquired absence of other specified parts of digestive tract; R94.31 Abnormal electrocardiogram [ECG] [EKG]
CPT/HCPCS: 36415; 70450; 71046; 80053; 81001; 85025; 85055; 85610; 85730; 93005; 96361; 96365; 96366; 96367; 96375; 96376; 99284; A9270; J0696; J1100; J1953; J7030